=== PATIENT | female | born 1985 | race Two or more races ===

== ENCOUNTER 2020-03-08 15:52 | Emergency (ER) | payer SELFPAY ==
[~2020-03-08] VITALS: Ht 215.9 cm; Wt 83.0 kg
[2020-03-08] MEDS ORDERED: ACETAMINOPHEN 325 MG TABLET PO ONE (16:00)
--- NOTE | 2020-03-08 16:03 | NUR ---
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
[2020-03-08] MEDS ORDERED: ACETAMINOPHEN ES 500 MG TABLET ONE (16:06)
[2020-03-08] MEDS ORDERED: IV NORMAL SALINE 250 ML IV ONE (16:44)
[2020-03-08] MEDS ORDERED: SWABABLE VALVE TRANSFER SET EA MC ONE (16:44)
[2020-03-08] MEDS ORDERED: IOHEXOL 300MG/ML 100 ML INFUS..BTL ONE (16:44)
[2020-03-08 16:48] LABS: BASOPHILS % (AUTO) 0.5 % (0.0-2.0); EOSINOPHILS # (AUTO) 0.1 K/uL (0.0-0.7); EOSINOPHILS % (AUTO) 0.6 % (0.0-7.0); HEMATOCRIT 43.5 % (31.2-41.9); HEMOGLOBIN 14.9 g/dL (10.9-14.3); LYMPHOCYTES # (AUTO) 2.5 K/uL (20.0-40.0); LYMPHOCYTES % (AUTO) 24.9 % (20.5-51.5); MEAN CORPUSCULAR HEMOGLOBIN 31.5 uug (24.7-32.8); MEAN CORPUSCULAR HGB CONC 34 g/dL (32.3-35.6); MEAN CORPUSCULAR VOLUME 91.9 fL (75.5-95.3); MONOCYTES # (AUTO) 0.6 K/uL (2.0-10.0); MONOCYTES % (AUTO) 5.5 % (0.0-11.0); NEUTROPHILS # (AUTO) 6.9 K/uL (1.8-8.9); NEUTROPHILS % (AUTO) 68.5 % (38.5-71.5); PLATELET COUNT (AUTO) 197 K/uL (179-408); RED BLOOD CELL COUNT(AUTO) 4.74 MIL/uL (3.63-4.92); WHITE BLOOD COUNT (AUTO) 10.1 K/uL (3.8-11.8)
[2020-03-08 16:50] LABS: *BILIRUBIN,URIN NEGATIVE (NEGATIVE); *COLOR,URINE YELLOW (YELLOW); *KETONES,URINE NEGATIVE (NEGATIVE); *UROBILINOGEN,URINE 0.2 E.U./dl (NORMAL); LEUKOCYTE ESTERASE ,URINE 1+ (NEGATIVE); NITRITE, URINE NEGATIVE (NEGATIVE); UGLUCOSE NEGATIVE (NEGATIVE)
[2020-03-08 16:51] LABS: *BLOOD, URINE TRACE (NEGATIVE); *CLARITY,URINE SLIGHTLY CLOUDY (CLEAR)
[2020-03-08 16:52] LABS: *URINE HCG, QUAL NEGATIVE (NEGATIVE)
[2020-03-08 16:56] LABS: BILIRUBIN,TOTAL 0.9 mg/dL (0.2-1.0); POTASSIUM 3.6 mmol/L (3.5-5.1); TOTAL PROTEIN, SERUM 7.9 g/dL (6.4-8.2)
--- NOTE | 2020-03-08 17:20 | NUR ---
Patient taken to CT scan
--- NOTE | 2020-03-08 17:31 | NUR ---
Patient back From CT scan
--- NOTE | 2020-03-08 18:43 | NUR ---
IV removed. Catheter intact and site benign. Pressure and 4x4 gauze applied to site. No bleeding noted. Patient discharged to home in stable condition. Written and verbal after care instructions given. Patient verbalizes understanding of instructions. Stressed follow up or return to ER for worsening s/s. Patient ambulated with steady gait. NAD noted
[2020-03-08 18:47] VITALS: BP 109/66
[2020-03-08 19:07] LABS: BACTERIA,URINE MANY /HPF (NONE SEEN); SQUAMOUS EPITHELIAL CELL,UR MANY /HPF (NONE SEEN)
== END 2020-03-08 18:43 | disposition home or self-care (01) ==
LOC: ER 15:52
DX: M79.661 Pain in right lower leg (principal); M25.512 Pain in left shoulder; R10.30 Lower abdominal pain, unspecified; S20.312A Abrasion of left front wall of thorax, initial encounter; S80.11XA Contusion of right lower leg, initial encounter; V43.52XA Car driver injured in collision with other type car in traffic accident, initial encounter; Y92.410 Unspecified street and highway as the place of occurrence of the external cause
CPT/HCPCS: 36415; 71045; 73030; 73564; 73590; 73700; 74177; 80053; 81001; 84703; 85025; 87077; 87086; 99285; Q9967; A4663; A9150; J7050

== ENCOUNTER 2020-03-16 09:03 | Emergency (ER) | payer SELFPAY ==
[~2020-03-16] VITALS: Ht 165.1 cm; Wt 81.6 kg
[2020-03-16] MEDS ORDERED: IBUP-1953 PO (09:16)
--- NOTE | 2020-03-16 09:22 | NUR ---
Dr. Harper at bedside assessing patient.
--- NOTE | 2020-03-16 09:35 | NUR ---
Patient discharged to home in stable condition. Written and verbal after care instructions given. Patient verbalizes understanding of instructions. Stressed follow up or return to ER for worsening s/s.
== END 2020-03-16 09:35 | disposition home or self-care (01) ==
LOC: ER 09:03
DX: M54.12 Radiculopathy, cervical region (principal); M54.16 Radiculopathy, lumbar region; T14.90XS Injury, unspecified, sequela; V43.52XS Car driver injured in collision with other type car in traffic accident, sequela
CPT/HCPCS: A4663